=== PATIENT | female | born 1995 | race African-American/Black ===

== ENCOUNTER 2019-04-28 19:25 | Emergency (ER) | payer MEDICAID, OTHER ==
[~2019-04-28] VITALS: Ht 167.6 cm; Wt 61.0 kg
[2019-04-29] MEDS ORDERED: ONDANSETRON HCL 4MG/2ML INJ IV STA (01:11)
[2019-04-29] MEDS ORDERED: ACETAMINOPHEN 325MG TABLET PO STA (01:11)
[2019-04-29] MEDS ORDERED: KETOROLAC 30MG/ML VIAL IV STA (01:11)
[2019-04-29] MEDS ORDERED: SODIUM CHLORIDE 0.9% 1,000 ML IV ONE (01:11)
[2019-04-29 01:24] LABS: CLARITY URINE TURBID (CLEAR); KETONES URINE TRACE (NEGATIVE); LEUKOCYTE ESTERASE URINE 2+ (NEGATIVE); NITRITE URINE POSITIVE (NEGATIVE); OCCULT BLOOD URINE 3+ (NEGATIVE); PH URINE 5.5 (4.5-8.0); PROTEIN URINE 2+ (NEGATIVE); SPECIFIC GRAVITY URINE 1.026 (1.005-1.030)
[2019-04-29 01:27] LABS: COLOR URINE BROWN (YELLOW)
[2019-04-29 01:40] LABS: BASOPHILS % 0.6 % (0.0-2.0); EOSINOPHILS % 3.4 % (0.0-5.0); HEMATOCRIT. 29.9 % (36.0-48.0); HEMOGLOBIN. 9.3 g/dL (12.0-16.0); LYMPHOCYTES % 44.4 % (20.0-50.0); MEAN CORPUSCULAR HEMOGLOBIN 22.5 pg (28.0-32.0); MEAN CORPUSCULAR VOLUME 72.2 fL (81.0-99.0); MEAN PLATELET VOLUME 9.3 fl (7.4-10.4); MONOCYTES % 8.8 % (2.0-8.0); NEUTROPHILS % 42.8 % (40.0-76.0); PLATELET 208 x1000/uL (130-400); RED BLOOD CELL COUNT 4.15 mill/uL (4.2-5.4); RED CELL DISTRIBUTION WIDTH 15.4 % (11.6-14.6)
[2019-04-29 01:43] LABS: CHLORIDE 108 mEq/L (98-107)
[2019-04-29] MEDS ORDERED: CEFTRIAXONE 1 G PREMIX 50 ML IV ONE (02:00)
[2019-04-29 03:05] VITALS: BP 115/71
== END 2019-04-29 03:13 | disposition home or self-care (01) ==
LOC: ER 19:25
DX: N39.0 Urinary tract infection, site not specified (principal); D64.9 Anemia, unspecified; Z98.890 Other specified postprocedural states
CPT/HCPCS: 36415; 80053; 81003; 81025; 83690; 85025; 87077; 87086; 87186; 96365; 96375; 99283; J0696; J1885; J2405; J7030

== ENCOUNTER 2019-06-07 23:26 | Emergency (ER) | payer MEDICAID ==
[~2019-06-07] VITALS: Ht 167.6 cm; Wt 61.0 kg
[2019-06-08] MEDS: TETANUS, DIPHTHERIA, PERTUSSIS VAC/PF 0.5ML (>7YR OLD) IM ONE (01:07)
[2019-06-08] MEDS: HYDROCODONE/ACETAMINOPHEN 5/325MG TABLET PO ONE (01:07)
[2019-06-08 01:40] VITALS: BP 123/81
== END 2019-06-08 01:46 | disposition home or self-care (01) ==
LOC: ER 23:53
DX: S30.810A Abrasion of lower back and pelvis, initial encounter (principal); Y08.89XA Assault by other specified means, initial encounter; Y93.89 Activity, other specified; Y92.89 Other specified places as the place of occurrence of the external cause; Y99.8 Other external cause status; F12.10 Cannabis abuse, uncomplicated
CPT/HCPCS: 90471; 90715; 99283

== ENCOUNTER 2019-07-16 21:05 | Emergency (ER) | payer MEDICAID ==
[~2019-07-16] VITALS: Ht 167.6 cm; Wt 61.0 kg
[2019-07-16] MEDS ORDERED: ACETAMINOPHEN 325MG TABLET PO ONE (23:45)
[2019-07-17 00:11] LABS: CLARITY URINE CLOUDY (CLEAR); COLOR URINE YELLOW (YELLOW); KETONES URINE NEGATIVE (NEGATIVE); LEUKOCYTE ESTERASE URINE NEGATIVE (NEGATIVE); NITRITE URINE NEGATIVE (NEGATIVE); OCCULT BLOOD URINE NEGATIVE (NEGATIVE); PROTEIN URINE NEGATIVE (NEGATIVE)
[2019-07-17 01:16] VITALS: BP 114/77
== END 2019-07-17 01:19 | disposition home or self-care (01) ==
LOC: ER 21:05
DX: S39.012A Strain of muscle, fascia and tendon of lower back, initial encounter (principal); W51.XXXA Accidental striking against or bumped into by another person, initial encounter; Y93.89 Activity, other specified; Y92.89 Other specified places as the place of occurrence of the external cause; Y99.8 Other external cause status; Z98.890 Other specified postprocedural states
CPT/HCPCS: 81003; 81025; 99283

== ENCOUNTER 2019-07-29 01:12 | Emergency (ER) | payer MEDICAID ==
[~2019-07-29] VITALS: Ht 167.6 cm; Wt 63.5 kg
[2019-07-29] MEDS ORDERED: SODIUM CHLORIDE 0.9% 1,000 ML IV ONE (01:56)
[2019-07-29] MEDS ORDERED: ONDANSETRON HCL 4MG/2ML INJ IV STA (01:56)
[2019-07-29 02:41] LABS: CLARITY URINE CLOUDY (CLEAR); COLOR URINE YELLOW (YELLOW); KETONES URINE 1+ (NEGATIVE); LEUKOCYTE ESTERASE URINE NEGATIVE (NEGATIVE); NITRITE URINE NEGATIVE (NEGATIVE); OCCULT BLOOD URINE NEGATIVE (NEGATIVE); PROTEIN URINE TRACE (NEGATIVE); SPECIFIC GRAVITY URINE 1.034 (1.005-1.030)
[2019-07-29 03:14] LABS: BASOPHILS % 0.5 % (0.0-2.0); EOSINOPHILS % 1.6 % (0.0-5.0); HEMATOCRIT. 29.6 % (36.0-48.0); HEMOGLOBIN. 9.4 g/dL (12.0-16.0); LYMPHOCYTES % 37.3 % (20.0-50.0); MEAN CORPUSCULAR HEMOGLOBIN 22.8 pg (28.0-32.0); MEAN CORPUSCULAR VOLUME 71.4 fL (81.0-99.0); MONOCYTES % 8.1 % (2.0-8.0); NEUTROPHILS % 52.5 % (40.0-76.0); PLATELET 223 x1000/uL (130-400); RED BLOOD CELL COUNT 4.14 mill/uL (4.2-5.4); RED CELL DISTRIBUTION WIDTH 15.3 % (11.6-14.6)
[2019-07-29 03:20] LABS: CHLORIDE 103 mEq/L (98-107)
[2019-07-29 05:35] VITALS: BP 108/64
== END 2019-07-29 05:38 | disposition home or self-care (01) ==
LOC: ER 01:12
DX: O21.8 Other vomiting complicating pregnancy (principal); Z3A.10 10 weeks gestation of pregnancy; Z98.890 Other specified postprocedural states
CPT/HCPCS: 36415; 76801; 80053; 81003; 81025; 83690; 85025; 96361; 96374; 99284; J2405; J7030; Z7610

== ENCOUNTER 2021-03-25 12:14 | Emergency (ER) | payer MEDICAID, OTHER ==
[~2021-03-25] VITALS: Ht 162.6 cm; Wt 61.0 kg
[2021-03-25 15:08] LABS: BASOPHILS % 0.5 % (0.0-2.0); EOSINOPHILS % 5.4 % (0.0-5.0); HEMATOCRIT. 33.7 % (36.0-48.0); HEMOGLOBIN. 10.3 g/dL (12.0-16.0); LYMPHOCYTES % 21.5 % (20.0-50.0); MEAN CORPUSCULAR HEMOGLOBIN 22.3 pg (28.0-32.0); MEAN CORPUSCULAR VOLUME 72.9 fL (81.0-99.0); MEAN PLATELET VOLUME 10.1 fl (7.4-10.4); NEUTROPHILS % 60.6 % (40.0-76.0); PLATELET 224 x1000/uL (130-400); RED BLOOD CELL COUNT 4.63 mill/uL (4.2-5.4); RED CELL DISTRIBUTION WIDTH 16.3 % (11.6-14.6)
[2021-03-25 15:12] LABS: CHLORIDE 109 mEq/L (98-107)
[2021-03-25 16:00] VITALS: BP 111/68
== END 2021-03-25 17:02 | disposition home or self-care (01) ==
LOC: ER 12:14
DX: Z20.822 Contact with and (suspected) exposure to COVID-19 (principal); R55 Syncope and collapse
CPT/HCPCS: 36415; 71045; 80048; 81025; 85025; 93005; 99285; C9803; U0003; U0005

== ENCOUNTER 2023-05-13 23:18 | Emergency (ER) | payer OTHER ==
[~2023-05-13] VITALS: Ht 167.6 cm; Wt 61.5 kg
[2023-05-14 00:06] VITALS: BP 131/90; O2SAT 100
[2023-05-14 02:00] LABS: CLARITY URINE CLOUDY (CLEAR); COLOR URINE YELLOW (YELLOW); GLUCOSE URINE NEGATIVE (NEGATIVE); KETONES URINE NEGATIVE (NEGATIVE); LEUKOCYTE ESTERASE URINE 1+ (NEGATIVE); NITRITE URINE POSITIVE (NEGATIVE); OCCULT BLOOD URINE 1+ (NEGATIVE); PH URINE 7.5 (4.5-8.0); PROTEIN URINE TRACE (NEGATIVE); SPECIFIC GRAVITY URINE 1.013 (1.005-1.030)
[2023-05-14 02:02] LABS: YEAST URINE NONE SEEN
[2023-05-14] MEDS ORDERED: CEPH500C2 MT (03:10)
[2023-05-14] MEDS ORDERED: CEPHALEXIN 250MG CAPSULE PO ONE (03:15)
[2023-05-14 03:38] VITALS: PULSE 99; RESP 18; TEMP 99.6
[2023-05-14 04:40] LABS: SQUAMOUS EPITHELIAL CELL URINE FEW /lpf (RARE/1+); WBC URINE 15-25 /hpf (0-2)
[2023-05-14 04:41] LABS: BACTERIA URINE 3+
== END 2023-05-14 03:42 | disposition home or self-care (01) ==
LOC: ER 23:18
DX: N39.0 Urinary tract infection, site not specified (principal)
CPT/HCPCS: 81003; 81025; 87077; 87186; 99283

== ENCOUNTER 2025-01-04 05:16 | Emergency (ER) | payer MEDICAID, OTHER ==
[~2025-01-04] VITALS: Ht 165.1 cm; Wt 66.0 kg
[~2025-01-04 05:16] MED LIST: CEPH500C2 MT
[2025-01-04 05:28] VITALS: O2SAT 100
[2025-01-04 05:51] LABS: CLARITY URINE CLEAR (CLEAR); COLOR URINE DARK YELLOW (YELLOW); GLUCOSE URINE NEGATIVE (NEGATIVE); KETONES URINE TRACE (NEGATIVE); LEUKOCYTE ESTERASE URINE 2+ (NEGATIVE); NITRITE URINE POSITIVE (NEGATIVE); OCCULT BLOOD URINE NEGATIVE (NEGATIVE); PH URINE 5.5 (4.5-8.0); PROTEIN URINE TRACE (NEGATIVE); SPECIFIC GRAVITY URINE 1.029 (1.005-1.030)
[2025-01-04 06:17] LABS: BACTERIA URINE 2+; RBC URINE 0-2 /hpf (0-2); SQUAMOUS EPITHELIAL CELL URINE 1+ /lpf (RARE/1+); WBC URINE 15-25 /hpf (0-2)
[2025-01-04] MEDS ORDERED: NITR100C PO (06:47)
[2025-01-04 07:15] VITALS: BP 119/78; PULSE 78; RESP 18; TEMP 36.9; O2SAT 100
== END 2025-01-04 07:25 | disposition home or self-care (01) ==
LOC: ER 05:16
DX: N39.0 Urinary tract infection, site not specified (principal)
CPT/HCPCS: 81003; 81025; 87077; 87186; 99283

== ENCOUNTER 2025-01-12 16:16 | Emergency (ER) | payer MEDICAID, OTHER ==
[~2025-01-12] VITALS: Ht 168.9 cm; Wt 68.0 kg
[~2025-01-12 16:16] MED LIST changes: +NITR100C PO
[2025-01-12 16:19] VITALS: O2SAT 100
[2025-01-12 18:42] LABS: CLARITY URINE CLOUDY (CLEAR); COLOR URINE YELLOW (YELLOW); GLUCOSE URINE NEGATIVE (NEGATIVE); KETONES URINE TRACE (NEGATIVE); LEUKOCYTE ESTERASE URINE 2+ (NEGATIVE); NITRITE URINE POSITIVE (NEGATIVE); OCCULT BLOOD URINE NEGATIVE (NEGATIVE); PH URINE 5.5 (4.5-8.0); PROTEIN URINE TRACE (NEGATIVE); SPECIFIC GRAVITY URINE 1.027 (1.005-1.030)
[2025-01-12 18:59] LABS: BACTERIA URINE 2+; RBC URINE 0-2 /hpf (0-2); SQUAMOUS EPITHELIAL CELL URINE 1+ /lpf (RARE/1+)
[2025-01-12] MEDS ORDERED: NITR100C MT (19:15)
[2025-01-12 19:46] VITALS: BP 134/88; PULSE 76; RESP 18; TEMP 36.9; O2SAT 100
== END 2025-01-12 19:46 | disposition home or self-care (01) ==
LOC: ER 16:16
DX: N39.0 Urinary tract infection, site not specified (principal)
CPT/HCPCS: 81003; 81025; 99283

== ENCOUNTER 2025-04-27 08:17 | Emergency (ER) | payer MEDICAID, OTHER ==
[~2025-04-27] VITALS: Ht 167.6 cm; Wt 70.0 kg
[~2025-04-27 08:17] MED LIST changes: +NITR100C MT
[2025-04-27 08:21] VITALS: O2SAT 100
[2025-04-27 08:26] VITALS: BP 120/87; PULSE 76; RESP 18; TEMP 36.9; O2SAT 100
[2025-04-27] MEDS: ONDANSETRON 4MG ODT PO ONE (08:44)
[2025-04-27] MEDS: FAMOTIDINE 20MG TABLET PO ONE (08:44)
[2025-04-27] MEDS: MAGNESIUM/ALUMINUM HYDROXIDE/SIMETHICONE 30ML UDC PO ONE (08:44)
[2025-04-27] MEDS: ACETAMINOPHEN 325MG TABLET PO ONE (08:44)
[2025-04-27 08:52] LABS: BASOPHILS % 0.6 % (0.0-2.0); EOSINOPHILS % 3.8 % (0.0-5.0); HEMATOCRIT. 34.1 % (36.0-48.0); HEMOGLOBIN. 10.6 g/dL (12.0-16.0); LYMPHOCYTES % 32.1 % (20.0-50.0); MEAN PLATELET VOLUME 10.4 fl (7.4-10.4); MONOCYTES % 7.3 % (2.0-8.0); NEUTROPHILS % 56.2 % (40.0-76.0); PLATELET 212 x1000/uL (130-400); RED BLOOD CELL COUNT 4.59 mill/uL (4.2-5.4); RED CELL DISTRIBUTION WIDTH 13.8 % (11.6-14.6)
[2025-04-27 09:07] LABS: CREATININE 1.0 mg/dL (0.6-1.0); HCG SCREEN NEGATIVE; UREA NITROGEN BLOOD 12 mg/dL (9-23)
[2025-04-27 09:09] LABS: ASPARTATE AMINOTRANSFERASE 19 IU/L (<34); BILIRUBIN DIRECT 0.1 mg/dL (<=3.0); BILIRUBIN TOTAL 0.5 mg/dL (0.1-1.0); PROTEIN TOTAL 7.4 g/dL (6.0-8.3)
[2025-04-27] MEDS ORDERED: ONDA4TAB50 MT (09:16)
[2025-04-27] MEDS ORDERED: FAMO-135 MT (09:16)
== END 2025-04-27 09:27 | disposition home or self-care (01) ==
LOC: ER 08:17
DX: K29.70 Gastritis, unspecified, without bleeding (principal); N89.8 Other specified noninflammatory disorders of vagina; Z79.899 Other long term (current) drug therapy; Z98.890 Other specified postprocedural states
CPT/HCPCS: 99284; 80076; 80048; 84703; 83690; 85025; 36415; Q0162

== ENCOUNTER 2025-05-13 15:01 | Emergency (ER) | payer MEDICAID, OTHER ==
[~2025-05-13] VITALS: Ht 167.6 cm; Wt 73.0 kg
[~2025-05-13 15:01] MED LIST changes: +FAMO-135 MT; +ONDA4TAB50 MT
[2025-05-13 15:12] VITALS: BP 123/74; PULSE 89; RESP 18; TEMP 37.2; O2SAT 100; O2SAT 99
[2025-05-13 16:41] LABS: CLARITY URINE CLEAR (CLEAR); COLOR URINE YELLOW (YELLOW); GLUCOSE URINE NEGATIVE (NEGATIVE); KETONES URINE TRACE (NEGATIVE); LEUKOCYTE ESTERASE URINE 1+ (NEGATIVE); NITRITE URINE POSITIVE (NEGATIVE); OCCULT BLOOD URINE NEGATIVE (NEGATIVE); PH URINE 6.0 (4.5-8.0); PROTEIN URINE NEGATIVE (NEGATIVE); SPECIFIC GRAVITY URINE 1.029 (1.005-1.030); UROBILINOGEN URINE 1.0 E.U./dL (0.2-1.0)
[2025-05-13 17:24] LABS: SQUAMOUS EPITHELIAL CELL URINE 2+ /lpf (RARE/1+)
[2025-05-13 17:26] LABS: BACTERIA URINE 3+
[2025-05-13] MEDS ORDERED: PYR200 MT (18:07)
[2025-05-13] MEDS ORDERED: CEPH500T MT (18:07)
[2025-05-13] MEDS: PHENAZOPYRIDINE HCL 100MG TABLET PO ONE (18:37)
[2025-05-13] MEDS: CEPHALEXIN 250MG CAPSULE PO ONE (18:37)
[2025-05-16 04:07] LABS: CHLAMYDIA TRACHOMATIS NAA Negative (Negative); NEISSERIA GONORRHOEAE NAA Negative (Negative)
== END 2025-05-13 18:47 | disposition home or self-care (01) ==
LOC: ER 15:01
DX: N39.0 Urinary tract infection, site not specified (principal)
CPT/HCPCS: 81003; 81025; 87077; 87186; 87491; 87591; 99283